=== PATIENT | female | born 1965 | race Two or more races ===

== ENCOUNTER 2017-01-27 13:21 | Emergency (ER) | payer OTHER ==
[~2017-01-27] VITALS: Ht 157.5 cm; Wt 75.4 kg
--- NOTE | 2017-01-27 13:38 | NUR ---
51 years old female c/o right leg pain s/p fall yesterday, ambulatory move extremity well no swelling.
[2017-01-27] MEDS ORDERED: HYDROCODONE/APAP 5-325MG TABLET PO ONE (14:15)
[2017-01-27] MEDS ORDERED: HYDROCODONE/APAP 5-325MG TABLET ONE (14:28)
[2017-01-27 14:44] LABS: *URINE HCG, QUAL NEGATIVE (NEGATIVE)
--- NOTE | 2017-01-27 16:48 | NUR ---
Patient discharged to home in stable conditon. Written and verbal after care instructions given. Patient verbalizes understanding of instructions. Prescription provided per MD's order. No further questions or concerns noted prior on leaving the ED.
[2017-01-27 16:50] VITALS: BP 133/86
== END 2017-01-27 16:52 | disposition home or self-care (01) ==
LOC: ER 13:21
DX: S79.911A Unspecified injury of right hip, initial encounter (principal); M51.26 Other intervertebral disc displacement, lumbar region; I10 Essential (primary) hypertension; W01.0XXA Fall on same level from slipping, tripping and stumbling without subsequent striking against object, initial encounter; Y92.89 Other specified places as the place of occurrence of the external cause; Y93.89 Activity, other specified; Y99.8 Other external cause status
CPT/HCPCS: 72131; 73502; 73562; 84703; A4663

== ENCOUNTER 2017-08-27 21:32 | Emergency (ER) | payer OTHER ==
[~2017-08-27] VITALS: Ht 165.1 cm; Wt 65.8 kg
[2017-08-28] MEDS ORDERED: EPINEPHRINE 1 MG/1 ML AMP SQ ONE (00:30)
[2017-08-28] MEDS ORDERED: FAMOTIDINE 20 MG TABLET PO ONE (00:30)
[2017-08-28] MEDS ORDERED: diphenhydrAMINE 50 MG CAPSULE PO ONE (00:30)
[2017-08-28] MEDS ORDERED: predniSONE 10 MG TABLET PO ONE (00:30)
[2017-08-28] MEDS ORDERED: FAMOTIDINE 20 MG TABLET ONE (00:43)
[2017-08-28] MEDS ORDERED: diphenhydrAMINE 50 MG CAPSULE ONE (00:43)
[2017-08-28] MEDS ORDERED: EPINEPHRINE 1 MG/1 ML AMP ONE (00:43)
[2017-08-28] MEDS ORDERED: predniSONE 20 MG TABLET ONE (00:43)
--- NOTE | 2017-08-28 01:28 | NUR ---
dPatient discharged to home in stable conditon. Written and verbal after care instructions given. Patient verbalizes understanding of instructions.
[2017-08-28 01:29] VITALS: BP 126/88
== END 2017-08-28 01:30 | disposition home or self-care (01) ==
LOC: ER 21:47
DX: L50.9 Urticaria, unspecified (principal)
CPT/HCPCS: 96372; 99284; A4663; J0171; J7512; Q0163